=== PATIENT | male | born 1980 | race Caucasian/White ===

== ENCOUNTER 2017-04-01 23:05 | Emergency (ER) | payer OTHER, MEDICAID ==
[~2017-04-01] VITALS: Ht 175.3 cm; Wt 70.8 kg
--- NOTE | 2017-04-01 23:19 | Emergency Room Report ---
History of Present Illness General Chief Complaint: Pain Source: Patient Present Illness HPI Is a 36-year-old male who is right-hand dominant. He presents with injury to the right hand after punching a wall. Onset was about an hour and 20 minutes ago. He has some swelling to the fifth knuckle. This occur before and he sustained a small fracture there before. No other injury. Pain is 3/10. He does not want any medication. Allergies: Coded Allergies: No Known Allergies (Unverified , 04/01/17) Patient History Past Medical History: see triage record, old chart reviewed Past Surgical History: none Pertinent Family History: none Social History: Denies: smoking Immunizations: other Reviewed Nursing Documentation: PMH: Agreed, PSxH: Agreed Nursing Documentation-PMH Past Medical History: No Stated History Review of Systems Eye: Denies: blurred vision, eye pain ENT: Denies: ear pain, nose congestion, throat swelling Respiratory: Denies: cough, shortness of breath Cardiovascular: Denies: chest pain, palpitations Gastrointestinal: Denies: abdominal pain, diarrhea, nausea, vomiting Musculoskeletal: Reports: joint swelling, Denies: back pain, joint pain Skin: Denies: rash Neurological: Denies: headache, numbness Endocrine: Denies: increased thirst, increased urine Hematologic/Lymphatic: Denies: easy bruising All Other Systems: negative except mentioned in HPI Physical Exam Vital Signs Date Time Temp Pulse Resp B/P Pulse Ox O2 Delivery O2 Flow Rate FiO2 04/01/17 23:07 97.9 113 16 140/93 99 Room Air vitals with tachycardia and hypertension Sp02 EP Interpretation: reviewed, normal General Appearance: well appearing, no apparent distress, alert Head: normocephalic, atraumatic Eyes: bilateral eye EOMI, bilateral eye PERRL ENT: hearing grossly normal, normal pharynx Neck: full range of motion, supple, no meningismus Respiratory: chest non-tender, lungs clear, normal breath sounds Cardiovascular #1: regular rate, rhythm, no murmur Gastrointestinal: normal bowel sounds, non tender, no mass, no organomegaly, no bruit, non-distended Musculoskeletal: back normal, gait/station normal, normal range of motion, other - Right hand: There is swelling over the distal fifth metacarpal bone. No malrotation. Sensation normal. Neurologic: alert, oriented x3 Psychiatric: mood/affect normal Skin: warm/dry Procedures Splinting Splinting : Consent: Verbal Location: Right hand Hand-Made Type: plaster Splint: ulnar Pre-Proc Neuro Vasc Exam: normal Post-Proc Neuro Vasc Exam: normal Patient Tolerated: Well Complications: None Medical Decision Making Diagnostic Impression: Primary Impression: Fracture of fifth metacarpal bone of right hand Qualified Codes: S62.366A - Nondisplaced fracture of neck of fifth metacarpal bone, right hand, initial encounter for closed fracture ER Course Patient with a nondisplaced boxer's fracture the right hand. No malrotation. Patient has minimal pain. We'll discharge home. Other X-Ray Diagnostic Results Other X-Ray Diagnostic Results : X-Ray Ordered: X-ray right-hand Date: April 02, 2017 Time: 00:02 EP Interpretation: Yes Findings: no dislocation, other - Right fifth metacarpal bone fracture. Soft tissue swelling. Number of Views: 3 Last Vital Signs Date Time Temp Pulse Resp B/P Pulse Ox O2 Delivery O2 Flow Rate FiO2 04/01/17 23:07 97.9 113 16 140/93 99 Room Air Status: improved Disposition: HOME, SELF-CARE Condition: Stable Scripts Ibuprofen* (MOTRIN*) 600 Mg Tablet 600 MG ORAL THREE TIMES A DAY, #30 TAB 0 Refills Prov: GELY GARCIA M.D. 04/02/17 Additional Instructions: Followup with your DrLata in 7 days. You may need a referral to see orthopedic Dr. Return if worse. GELY GARCIA M.D. April 01, 2017 23:18
[2017-04-02 00:01] VITALS: BP 144/94
[2017-04-02] MEDS ORDERED: IBUPROFEN600 MG ORAL (00:03)
[2017-04-02 00:09] VITALS: BP 144/94
--- NOTE | 2017-04-02 09:58 | Diagnostic Imaging Report ---
Indications: Right hand trauma, pain Technique: 3 views right hand. Findings: Comparison: None There is oblique fracture through the distal diaphysis of the fifth metacarpal. Distal fragment demonstrates minimal palmar displacement and angulation. Overlying soft tissues are swollen. No additional fracture, dislocation, joint space widening , soft tissue foreign body/gas, or other acute changes are identified. IMPRESSION: Fifth metacarpal boxer's fracture .
== END 2017-04-02 00:09 | disposition home or self-care (01) ==
LOC: EMR 23:30
DX: S62.366A Nondisplaced fracture of neck of fifth metacarpal bone, right hand, initial encounter for closed fracture (principal); W22.01XA Walked into wall, initial encounter; Y93.9 Activity, unspecified; Y99.9 Unspecified external cause status; M25.40 Effusion, unspecified joint
CPT/HCPCS: 29125; 99283